=== PATIENT | male | born 1950 | race African-American/Black ===

== ENCOUNTER 2019-03-13 14:36 | Inpatient (IN) | payer MEDICARE, SELFPAY ==
[~2019-03-13 14:36] MED LIST: Iopamidol 370 76% 100 ML VIAL ONE
[2019-03-13 14:58] LABS: #Basophils 0.1 thou/uL (0.0-0.2); #Eosinphils 0.1 thou/uL (0.0-0.7); #Lymphocytes 0.9 thou/uL (1.20-3.40); #Monocytes 0.4 thou/uL (0.11-0.59); #Neutrophils 2.9 thou/uL (1.40-6.50); %Basophils 1.5 % (0.0-1.0); %Eosinophils 1.9 % (0.0-10.0); %Lymphocytes 21.2 % (21.0-51.0); %Monocytes 8.2 % (0.0-10.0); %Neutrophils 67.1 % (42.0-75.0); Mean Corpuscular HGB CONC 33.3 g/dL (32.0-36.0); Mean Corpuscular Hemoglobin 27.6 pg (27.0-31.0); Mean Platelet Volume 8.8 fL (7.4-10.4); Platelet Count 158 thou/uL (130-400); RBC Distribution Width 13.4 % (11.5-14.5); Red Blood Cell (RBC) Count 4.35 mill/uL (4.70-6.10); White Blood Cell (WBC) Count 4.3 thou/uL (4.8-10.8)
[2019-03-13 15:06] LABS: Prothrombin Time 13.6 SEC (12.0-14.7)
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
[2019-03-13 15:21] LABS: ALT (SGPT) 24 U/L (8-55); AST (SGOT) 25 U/L (5-34); Albumin 4.1 g/dL (3.4-4.8); Alkaline Phosphatase 96 U/L (40-110); Anion Gap 12 mmol/L (10-20); BUN (Urea Nitrogen) 10 mg/dL (8.4-25.7); Bilirubin, Total 0.5 mg/dL (0.2-1.2); Calc. Creatinine Clearance 0 mL/min (70-130); Calcium 9.3 mg/dL (7.8-10.44); Carbon Dioxide 27 mmol/L (23-31); Chloride 102 mmol/L (98-107); Estimated GFR-MDRD 45; Globulin 3.3 g/dL (2.4-3.5); Glucose 317 mg/dL (80-115); Lipase 11 U/L (8-78); Potassium 3.9 mmol/L (3.5-5.1); Protein, Total 7.4 g/dL (5.8-8.1); Sodium 137 mmol/L (136-145)
[2019-03-13] MEDS ORDERED: Morphine 4 MG/ML VIAL ONE (15:39)
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
[2019-03-13] MEDS ORDERED: Promethazine HCl 25 MG/ML VIAL IM PRN (15:57)
[2019-03-13] MEDS ORDERED: Dextrose 5% in Water 1,000 ML IV PRN (15:57)
[2019-03-13] MEDS ORDERED: hydrALAZINE 20 MG/ML VIAL SLOW IVP PRN (15:57)
[2019-03-13] MEDS ORDERED: Ondansetron PF 4 MG/2 ML Vial IVP PRN (15:57)
[2019-03-13] MEDS ORDERED: Dextrose 50% Abboject 50 ML SYRINGE SLOW IVP PRN (15:57)
[2019-03-13] MEDS ORDERED: Sodium Chloride 0.9% 1,000 ML IV SCH (16:00)
[2019-03-13] MEDS ORDERED: traMADol HCl 50 MG TAB PO PRN (16:01)
[2019-03-13] MEDS ORDERED: Morphine 4 MG/ML VIAL SLOW IVP PRN (16:02)
[2019-03-13 16:30] LABS: Hemoglobin 12.1 g/dL (14.0-18.0)
[2019-03-13] MEDS ORDERED: Pregabalin 25 MG CAP PO SCH ×2 (16:30→21:00)
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
[2019-03-13] MEDS ORDERED: cloNIDine 0.1 MG TAB PO SCH (20:30)
[2019-03-13] MEDS: Acetaminophen 500 MG TAB PO SCH (20:33)
[2019-03-13] MEDS: cloNIDine 0.1 MG TAB PO SCH ×2 (20:33→23:53)
[2019-03-13] MEDS: Sodium Chloride 0.9% 1,000 ML IV SCH (20:33)
[2019-03-13] MEDS: traMADol HCl 50 MG TAB PO SCH ×2 (20:34→23:53)
[2019-03-13] MEDS: Pregabalin 75 MG CAP PO SCH (20:34)
[2019-03-13] MEDS ORDERED: Atorvastatin Calcium 20 MG TAB PO SCH (21:00)
[2019-03-13] MEDS ORDERED: Gabapentin 300 MG CAP PO SCH (21:00)
[2019-03-13] MEDS: Insulin Glargine 10 UNITS in Pre-Filled Syringe 1 EACH SC SCH (21:21)
[2019-03-13 22:23] LABS: Hemoglobin 12.2 g/dL (14.0-18.0)
[2019-03-14] MEDS: Acetaminophen 500 MG TAB PO SCH ×4 (01:41→17:36)
[2019-03-14] MEDS: cloNIDine 0.1 MG TAB PO SCH ×3 (05:30→17:41)
[2019-03-14] MEDS: traMADol HCl 50 MG TAB PO SCH ×3 (05:30→17:37)
[2019-03-14] MEDS: Cyclobenzaprine 10 MG TAB PO PRN ×2 (05:30→21:55)
[2019-03-14] MEDS: Sodium Chloride 0.9% 1,000 ML IV SCH (05:40)
[2019-03-14] MEDS: Metoprolol Tartrate 25 MG TAB PO SCH ×2 (08:23→20:52)
[2019-03-14] MEDS: Pregabalin 75 MG CAP PO SCH ×3 (08:23→20:50)
[2019-03-14] MEDS: Famotidine/PF 20 mg/2ml Vial SLOW IVP SCH (08:26)
[2019-03-14 10:08] LABS: #Eosinphils 0.2 thou/uL (0.0-0.7); #Lymphocytes 1.2 thou/uL (1.20-3.40); #Monocytes 0.5 thou/uL (0.11-0.59); #Neutrophils 3.4 thou/uL (1.40-6.50); %Basophils 0.5 % (0.0-1.0); %Eosinophils 2.9 % (0.0-10.0); %Monocytes 9.5 % (0.0-10.0); %Neutrophils 64.1 % (42.0-75.0); Hemoglobin 10.2 g/dL (14.0-18.0); Mean Corpuscular HGB CONC 33.7 g/dL (32.0-36.0); Mean Corpuscular Hemoglobin 27.9 pg (27.0-31.0); Mean Corpuscular Volume 82.6 fL (78.0-98.0); Mean Platelet Volume 8.5 fL (7.4-10.4); Platelet Count 146 thou/uL (130-400); RBC Distribution Width 13.6 % (11.5-14.5); Red Blood Cell (RBC) Count 3.64 mill/uL (4.70-6.10); White Blood Cell (WBC) Count 5.3 thou/uL (4.8-10.8)
[2019-03-14 10:11] LABS: Hemoglobin A1c 8.1 % (4.0-6.0)
[2019-03-14 10:15] LABS: Hemoglobin 10.1 g/dL (14.0-18.0)
[2019-03-14 10:24] LABS: Anion Gap 12 mmol/L (10-20); BUN (Urea Nitrogen) 10 mg/dL (8.4-25.7); Calc. Creatinine Clearance 68 mL/min (70-130); Calcium 8.5 mg/dL (7.8-10.44); Carbon Dioxide 23 mmol/L (23-31); Chloride 103 mmol/L (98-107); Estimated GFR-MDRD 60; Glucose 296 mg/dL (80-115); Potassium 4.3 mmol/L (3.5-5.1); Sodium 134 mmol/L (136-145)
[2019-03-14] MEDS: HumaLOG 300 UNITS/3 ML VIAL SC PRN ×2 (12:12→17:39)
[2019-03-14 15:56] LABS: Hemoglobin 9.8 g/dL (14.0-18.0)
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
[2019-03-14] MEDS: Insulin Glargine 10 UNITS in Pre-Filled Syringe 1 EACH SC SCH (20:52)
[2019-03-15] MEDS: traMADol HCl 50 MG TAB PO SCH ×4 (00:07→17:27)
[2019-03-15] MEDS: Acetaminophen 500 MG TAB PO SCH ×4 (00:08→17:28)
[2019-03-15] MEDS: cloNIDine 0.1 MG TAB PO SCH ×4 (00:09→17:27)
[2019-03-15] MEDS: Sodium Chloride 0.9% 1,000 ML IV SCH ×3 (02:42→17:29)
[2019-03-15 05:46] LABS: Anion Gap 14 mmol/L (10-20); BUN (Urea Nitrogen) 11 mg/dL (8.4-25.7); Calc. Creatinine Clearance 75 mL/min (70-130); Calcium 8.4 mg/dL (7.8-10.44); Carbon Dioxide 20 mmol/L (23-31); Chloride 107 mmol/L (98-107); Estimated GFR-MDRD 67; Glucose 173 mg/dL (80-115); Magnesium 1.8 mg/dL (1.6-2.6); Phosphorus 2.7 mg/dL (2.3-4.7); Potassium 4.2 mmol/L (3.5-5.1); Sodium 137 mmol/L (136-145)
[2019-03-15] MEDS: HumaLOG 300 UNITS/3 ML VIAL SC PRN ×3 (06:02→20:35)
[2019-03-15 06:04] LABS: #Eosinphils 0.2 thou/uL (0.0-0.7); #Lymphocytes 1.3 thou/uL (1.20-3.40); #Monocytes 0.3 thou/uL (0.11-0.59); %Basophils 0.5 % (0.0-1.0); %Eosinophils 3.3 % (0.0-10.0); %Lymphocytes 26.2 % (21.0-51.0); %Monocytes 6.5 % (0.0-10.0); %Neutrophils 63.5 % (42.0-75.0); Hemoglobin 10.5 g/dL (14.0-18.0); Mean Corpuscular HGB CONC 33.4 g/dL (32.0-36.0); Mean Corpuscular Hemoglobin 27.6 pg (27.0-31.0); Mean Corpuscular Volume 82.9 fL (78.0-98.0); Mean Platelet Volume 8.9 fL (7.4-10.4); Platelet Count 122 thou/uL (130-400); RBC Distribution Width 13.5 % (11.5-14.5); White Blood Cell (WBC) Count 4.8 thou/uL (4.8-10.8)
[2019-03-15] MEDS: Pregabalin 75 MG CAP PO SCH ×3 (08:59→20:26)
[2019-03-15] MEDS: Cyclobenzaprine 10 MG TAB PO PRN ×2 (08:59→16:08)
[2019-03-15] MEDS: Famotidine/PF 20 mg/2ml Vial SLOW IVP SCH ×2 (08:59→20:31)
[2019-03-15] MEDS: Metoprolol Tartrate 25 MG TAB PO SCH ×2 (08:59→20:26)
[2019-03-15] MEDS: Enoxaparin Sodium 40 MG/0.4 ML SYRINGE SC SCH (09:40)
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
[2019-03-15] MEDS: Insulin Glargine 10 UNITS in Pre-Filled Syringe 1 EACH SC SCH (20:31)
[2019-03-16] MEDS: cloNIDine 0.1 MG TAB PO SCH ×5 (00:36→23:30)
[2019-03-16] MEDS: Acetaminophen 500 MG TAB PO SCH ×5 (00:37→23:30)
[2019-03-16] MEDS: Cyclobenzaprine 10 MG TAB PO PRN (00:37)
[2019-03-16] MEDS: traMADol HCl 50 MG TAB PO SCH ×5 (00:37→23:30)
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
[2019-03-16] MEDS: Metoprolol Tartrate 25 MG TAB PO SCH ×2 (08:40→20:56)
[2019-03-16] MEDS: Pregabalin 75 MG CAP PO SCH ×3 (08:40→20:55)
[2019-03-16] MEDS: Famotidine/PF 20 mg/2ml Vial SLOW IVP SCH ×2 (08:41→20:56)
[2019-03-16] MEDS: Enoxaparin Sodium 40 MG/0.4 ML SYRINGE SC SCH (08:41)
[2019-03-16] MEDS ORDERED: Lisinopril 10 MG TAB PO SCH (09:00)
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
[2019-03-16] MEDS ORDERED: Haloperidol Lactate 5 MG/ML VIAL IM ONE (20:50)
[2019-03-16] MEDS ORDERED: diphenhydrAMINE 50 MG/ML VIAL IM SCH (21:00)
[2019-03-16] MEDS: Insulin Glargine 10 UNITS in Pre-Filled Syringe 1 EACH SC SCH (21:01)
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
[2019-03-17] MEDS: Cyclobenzaprine 10 MG TAB PO PRN (02:02)
[2019-03-17] MEDS: Acetaminophen 500 MG TAB PO SCH ×5 (02:02→23:51)
[2019-03-17] MEDS: traMADol HCl 50 MG TAB PO SCH ×5 (02:02→23:52)
[2019-03-17] MEDS: cloNIDine 0.1 MG TAB PO SCH ×5 (02:03→23:51)
[2019-03-17] MEDS: Enoxaparin Sodium 40 MG/0.4 ML SYRINGE SC SCH (10:02)
[2019-03-17] MEDS: Lisinopril 20 MG TAB PO SCH (10:02)
[2019-03-17] MEDS: Metoprolol Tartrate 25 MG TAB PO SCH ×2 (10:02→20:57)
[2019-03-17] MEDS: Pregabalin 75 MG CAP PO SCH ×3 (10:02→20:57)
[2019-03-17] MEDS: HumaLOG 300 UNITS/3 ML VIAL SC PRN (13:12)
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
[2019-03-17] MEDS: Insulin Glargine 10 UNITS in Pre-Filled Syringe 1 EACH SC SCH (21:04)
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
[2019-03-18] MEDS ORDERED: Acetaminophen 500 MG TAB ONE (06:10)
[2019-03-18] MEDS ORDERED: cloNIDine 0.1 MG TAB ONE (06:11)
[2019-03-18] MEDS ORDERED: traMADol HCl 50 MG TAB ONE (06:12)
[2019-03-18] MEDS: Metoprolol Tartrate 25 MG TAB PO SCH (08:57)
[2019-03-18] MEDS: Pregabalin 75 MG CAP PO SCH ×2 (08:57→15:43)
[2019-03-18] MEDS: Lisinopril 20 MG TAB PO SCH (08:57)
[2019-03-18] MEDS: Enoxaparin Sodium 40 MG/0.4 ML SYRINGE SC SCH (08:57)
[2019-03-18] MEDS: HumaLOG 300 UNITS/3 ML VIAL SC PRN (12:00)
[2019-03-18] MEDS: traMADol HCl 50 MG TAB PO SCH ×3 (12:04→17:32)
[2019-03-18] MEDS: Acetaminophen 500 MG TAB PO SCH ×3 (12:04→17:32)
[2019-03-18] MEDS: cloNIDine 0.1 MG TAB PO SCH ×3 (12:04→17:32)
[2019-03-18 19:21] VITALS: BP 168/83; TEMP 97.4
[2019-03-18] MEDS ORDERED: Sodium Chloride 0.9% 1,000 ML IV SCH (20:00)
== END 2019-03-18 20:10 | disposition home health service (06) | DRG 964 ==
LOC: ERS 14:36 → SURG A 19:53
PROVIDERS: ADMIT Surgery; ATTEND Surgery
DX: S27.321A Contusion of lung, unilateral, initial encounter (principal); S06.330A Contusion and laceration of cerebrum, unspecified, without loss of consciousness, initial encounter; S22.42XA Multiple fractures of ribs, left side, initial encounter for closed fracture; S36.114A Minor laceration of liver, initial encounter; S36.030A Superficial (capsular) laceration of spleen, initial encounter; R40.2413 Glasgow coma scale score 13-15, at hospital admission; I10 Essential (primary) hypertension; E11.9 Type 2 diabetes mellitus without complications; G89.4 Chronic pain syndrome; S06.0X0A Concussion without loss of consciousness, initial encounter; F11.10 Opioid abuse, uncomplicated; R45.1 Restlessness and agitation; V89.2XXA Person injured in unspecified motor-vehicle accident, traffic, initial encounter; Z95.1 Presence of aortocoronary bypass graft; Z89.511 Acquired absence of right leg below knee; Z79.899 Other long term (current) drug therapy
CPT/HCPCS: 36415; 36416; 70450; 71045; 71260; 72125; 72170; 74177; 80048; 80053; 83036; 83690; 83735; 84100; 85025; 85610; 85730; 86850; 86900; 86901; 94640; 94760; 96374; G0390; J0360; J1200; J1630; J1650; J1815; J2270; J7620; Q9967; S0028